=== PATIENT | male | born 1950 | race Caucasian/White ===

== ENCOUNTER 2016-12-17 11:33 | Outpatient (CLI) | payer MEDICARE | END 2016-12-17 11:34 | disposition home or self-care (01) | LOC: LABBT 11:33 | PROVIDERS: ATTEND Specialist | DX: Z01.818 Encounter for other preprocedural examination (principal); E66.01 Morbid (severe) obesity due to excess calories; Z68.42 Body mass index [BMI] 45.0-49.9, adult ==

== ENCOUNTER 2016-12-17 12:00 | Inpatient (IN) | payer MEDICARE ==
[2016-12-17 12:01] VITALS: BMI 45.1
--- NOTE | 2016-12-17 22:30 | HP ---
HISTORY OF PRESENT ILLNESS: Mr. Dailey is a 66-year-old male who I saw for appendicitis and he did well after laparoscopic appendectomy. On 04/27/2016, he presented for consideration of bariatric s leeve. He has attended our educational seminar, visited our dietitian, met with psychiatry and felt to be a good candidate. He understands the dietary changes associated with laparoscopic sleeve gas trectomy. He has had a Lexiscan and echocardiogram with Dr. Paolo العلي 11/01, all of which wer e normal and he is cleared for surgery without further evaluations. The patient has minimal cardiac risk. His echocardiogram was normal. Lexiscan normal. He had borderline EKG changes, bradycardia , otherwise unremarkable cardiac workup. His preoperative bariatric labs obtained are unremarkable. The patient when initially seen was 346 pounds, 45 BMI. Today 342 pounds, 45 BMI. He reports 10 pounds total weight loss since he has attended the seminar. He understands the risk of operation in cluding infection, bleeding, reoperation, staple line leakage, re-admission etc and questions answer ed, he consents. COMORBIDITIES: The patient is followed by Dr. Roca. He reports having a colonoscopy 4-[address] Lemon and 2 polyps were removed. Comorbidities include hypertension, elevated cholestero l, sleep apnea, well controlled on medications with normal cholesterol and triglycerides. 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 He is and has one grown child. He does have a history of atrial flutter, followed Dr. العلي, but as noted above, has had cardiac clearance wi thout contraindication to surgery. ALLERGIES: PENICILLIN. PAST MEDICAL HISTORY: Hypertension, elevated cholesterol, bipolar disease, obesity, sleep apnea, an xiety. PAST SURGICAL HISTORY: Right rotator cuff 2004, laparoscopic appendectomy 01/2016, colonoscopy in t he past. MEDICATIONS: CPAP, Abilify 10 mg a day, lisinopril 40 mg a day, metoprolol 80 mg a day, Sertraline 200 mg a day, hydroxyzine once a day, simvastatin 40 mg a day. REVIEW OF SYSTEMS: Ten point noncontributory. PHYSICAL EXAMINATION: VITAL SIGNS: 6 foot 1, 342 pounds, 45 BMI, 167 pounds ideal body weight, 147/77, 76, 95 degrees. HEENT: Unremarkable. LUNGS: Clear to auscultation. CARDIAC: Rhythm without murmur or gallop. ABDOMEN: Soft, obese, nontender. EXTREMITIES: Unremarkable. LYMPH: Lymphadenopathy not present, neck, axilla, groin. NEUROLOGIC: Neurologically intact. ASSESSMENT AND PLAN: Morbid obesity 342 pounds, 6 foot 1, 45 BMI, endorsed by psychiatry without an y prohibitive contraindications. Well controlled elevated cholesterol, hypertension, and sleep apne a on CPAP. Risk of operation as outlined above. Consents reviewed in the office with the patient. Questions answered. We will proceed with laparoscopic sleeve gastrectomy.
[2016-12-23] MEDS ORDERED: Scopolamine 1.5 mg/72 hour Patch ONE (06:08)
[2016-12-23] MEDS ORDERED: Ketorolac Tromethamine 30 MG/ML VIAL ONE (06:08)
[2016-12-23] MEDS ORDERED: Heparin 5,000 UNITS/ML VIAL ONE (06:08)
[2016-12-23] MEDS ORDERED: Sodium Chloride 0.9% 100 ML ONE (06:08)
[2016-12-23] MEDS ORDERED: Fentanyl 100 MCG/2 ML VIAL ONE (06:37)
[2016-12-23] MEDS ORDERED: Clindamycin/D5W 900 mg/50 ml Premix Bag ONE ×2 (06:50→08:22)
[2016-12-23] MEDS ORDERED: Levofloxacin 500 mg/D5W 100 ml Premix Bag ONE (06:50)
[2016-12-23] MEDS ORDERED: Bupivacaine HCl 0.5%/Epinephrine 1:200,000/PF 30 ml Vial ONE (07:07)
[2016-12-23] MEDS ORDERED: Glycopyrrolate 0.2 MG/ML 5 ML SYRINGE ONE (08:10)
[2016-12-23] MEDS ORDERED: Propofol 200 MG/20 ML VIAL ONE (08:10)
[2016-12-23] MEDS ORDERED: PHENYLEPHRINE-NS 100 MCG/ML 10 ML SYRINGE ONE (08:10)
[2016-12-23] MEDS ORDERED: Dexamethasone 20 MG/5 ML VIAL ONE (08:10)
[2016-12-23] MEDS ORDERED: ePHEDrine/0.9% NaCl/PF SYRINGE 50 mg/10 ml ONE (08:10)
[2016-12-23] MEDS ORDERED: Ondansetron HCl/PF 4 MG/2 ML Vial ONE (08:10)
[2016-12-23] MEDS ORDERED: Metoclopramide HCl 10 MG/2 ML VIAL ONE (08:10)
[2016-12-23] MEDS ORDERED: Lidocaine 1% PF 5 ML VIAL ONE (08:10)
[2016-12-23] MEDS ORDERED: Succinylcholine Chloride 20 MG/ML 10 ml SYRINGE FS ONE (08:10)
[2016-12-23] MEDS ORDERED: Morphine Sulfate 2 MG/ML SYRINGE SLOW IVP PRN (08:19)
[2016-12-23] MEDS ORDERED: Ondansetron HCl/PF 4 MG/2 ML Vial IVP PRN (08:19)
[2016-12-23] MEDS ORDERED: Dextrose 5% in Water 1,000 ML IV PRN (08:19)
[2016-12-23] MEDS ORDERED: Hydrocodone-Acetamin 15 ML UDCUP PO PRN ×2 (08:19→09:34)
[2016-12-23] MEDS ORDERED: Dextrose 50% Abboject 50 ML SYRINGE SLOW IVP PRN (08:19)
[2016-12-23] MEDS ORDERED: diphenhydrAMINE HCl 50 MG/ML 1 ML VIAL IVP PRN (08:19)
[2016-12-23] MEDS ORDERED: Acetaminophen 500 MG TAB PO SCH (08:30)
[2016-12-23] MEDS ORDERED: Promethazine HCl 25 MG/ML VIAL ONE (10:35)
[2016-12-23] MEDS ORDERED: D5 1/2 NS w/20 mEq KCL 1,000 ML ONE (10:39)
--- NOTE | 2016-12-23 11:01 | OP ---
DATE OF OPERATION: 12/23/2016 PREOPERATIVE DIAGNOSES: Morbid obesity, metabolic syndrome, sleep apnea, hypertension, elevated cho lesterol, 342 pounds, 45 body mass index. PROCEDURES: Laparoscopic sleeve gastrectomy, 36 Cymro bougie within 3.5 cm of pylorus completely s een in the upper endoscopy visualizing the pylorus, no obstruction. SURGEON: Dr. Asif Rdz. ANESTHESIA: General. Local 0.5% Marcaine with epinephrine, 60 mL. DESCRIPTION OF THE PROCEDURE: Patient taken to the operating room where under general anesthesia, a bdomen was clipped of hair, prepared with ChloraPrep, draped in routine fashion. Local anesthetic i nfiltrated into skin and subcutaneous tissue at each port site. Supraumbilical incision made midlin e and pneumoperitoneum to 15 mmHg obtained with the Veress needle, replacing it with a 5 port. Vide o laparoscope inserted. Left subxiphoid incision made and a Abilio liver retractor placed under lap aroscopic visualization reflecting the small left lobe of liver anteriorly. Bilateral upper abdomin al midclavicular incisions made and 15 mm port placed left and a 12 mm port placed right and bilater al subcostal, far lateral subcostal incisions made left and right and 5 ports placed. Gastrocolic l igament taken down adjacent to the greater curvature of the stomach using the LigaSure dissecting th is free up towards the ligament of Treitz. Posterior attachments taken down fully mobilizing the st omach. Dissection carried out distally with 3 cm of pylorus freeing the greater curvature. NG tube removed and 36 Cymro bougie placed orally by Anesthesia under laparoscopic visualization and posit ion into the distal stomach. Serial fires of the OR green load stapler initially created the first fire making appropriately a small pouch and antrum and serially firing yellow load staplers along t he bougie allowing the extra lumen near the incisura. Serial fires were up to the angle of His jiang ied out towards the upper fundus, taking care to avoid redundancy of the posterior stomach. Serial yellow fires and completion of blue load fires completing the sleeve gastrectomy removing through th is 15 mm port site and closing this fascial defect with a suture 0 Vicryl GraNee needle. Staple maya e in the stomach inspected and Hemoclips applied throughout gaining good hemostasis and area irrigat ed. Completion of upper endoscopy performed placing the scope per os under direct visualization ____ _ placed throughout the esophagus into the stomach, visualizing the pylorus without obstruction. Th ere was no bleeding. This was checked under water and there was no leak. Scope withdrawn and as th e stomach was decompressed with suction, esophagus was normal. GE junction was normal. There was n o evidence of hiatal hernia laparoscopically and endoscopically. My gloves and gowns were then izquierdo ged and attention turned to the abdominal cavity where this staple line along the sleeve gastrectomy was inspected. Good hemostasis obtained with clips. Irrigant and pneumoperitoneum evacuated. Lupe er retractor removed. All instruments removed and all skin incisions closed with interrupted subder mal 4-0 Monocryl and DermaGlue applied. At the end of the procedure, skin incisions approximated wi th subdermal 4-0 Monocryl and DermaGlue applied.
[2016-12-23] MEDS: Acetaminophen 1,000 MG in Premix Bag 1 BAG IVPB SCH ×3 (12:32→23:51)
[2016-12-23] MEDS: Ketorolac Tromethamine 30 MG/ML VIAL IVP SCH ×3 (12:32→23:50)
[2016-12-23] MEDS: D5 1/2 NS w/20 mEq KCL 1,000 ML IV SCH ×2 (12:54→18:01)
[2016-12-23] MEDS: Aripiprazole 10 MG TAB PO SCH (12:54)
[2016-12-23] MEDS: Pantoprazole 40 MG VIAL IVP SCH (12:54)
[2016-12-23] MEDS ORDERED: Enoxaparin Sodium 40 MG/0.4 ML SYRINGE SC SCH (21:00)
[2016-12-24] MEDS: D5 1/2 NS w/20 mEq KCL 1,000 ML IV SCH ×2 (02:44→13:15)
[2016-12-24 05:01] LABS: #Lymphocytes 1.4 thou/uL (1.20-3.40); #Monocytes 0.6 thou/uL (0.11-0.59); #Neutrophils 12.3 thou/uL (1.40-6.50); %Basophils 0.1 % (0.0-1.0); %Eosinophils 0.1 % (0.0-10.0); %Lymphocytes 9.7 % (21.0-51.0); %Monocytes 4.1 % (0.0-10.0); Hematocrit 42.7 % (42.0-52.0); Mean Platelet Volume 7.2 fL (7.4-10.4); Red Blood Cell (RBC) Count 4.61 mill/uL (4.70-6.10); White Blood Cell (WBC) Count 14.3 thou/uL (4.8-10.8)
[2016-12-24 05:19] LABS: Anion Gap 11 mmol/L (10-20); BUN (Urea Nitrogen) 23 mg/dL (8.4-25.7); Calc. Creatinine Clearance 146 mL/min (70-130); Calcium 8.5 mg/dL (7.8-10.44); Carbon Dioxide 24 mmol/L (23-31); Chloride 102 mmol/L (98-107); Estimated GFR-MDRD 66
[2016-12-24] MEDS: Acetaminophen 1,000 MG in Premix Bag 1 BAG IVPB SCH (06:06)
[2016-12-24] MEDS: Ketorolac Tromethamine 30 MG/ML VIAL IVP SCH ×2 (06:06→13:16)
[2016-12-24] MEDS ORDERED: Hydrochlorothiazide 25 MG TAB PO SCH (09:00)
[2016-12-24] MEDS ORDERED: traMADol HCl 50 MG TAB PO PRN ×2 (09:00)
[2016-12-24] MEDS ORDERED: Fish Oil 1,000 MG CAP PO SCH (09:00)
[2016-12-24] MEDS ORDERED: Polyethylene Glycol 3350 17 GM Packet PO SCH (09:00)
[2016-12-24] MEDS ORDERED: Atorvastatin Calcium 40 MG TAB PO SCH (09:00)
--- NOTE | 2016-12-24 09:23 | RAD ---
15 ML GASTROGRAFIN SWALLOW 12/24/16 HISTORY: Status post gastric sleeve procedure. Evaluate for enteric leak. FINDINGS: A 15 mL gastrografin swallow was performed. The contrast passed from the esophagus into the gastric sleeve without difficulty. The contrast passed out of the gastric sleeve into the duodenum without difficulty. Along the greater curvature of the stomach, there is radiopaque material which was of un certain significance. Therefore, radiographs were taken of the upper abdomen for better resolution. These radiopacities represent multiple surgical clips along the greater curvature of the stomach and along the gastric sleeve. There is no evidence of leakage of contrast from the gastric sleeve. IMPRESSION: Status post gastric sleeve procedure without evidence of complication. POS: OLI
[2016-12-24] MEDS ORDERED: Hydrocodone-Acetamin 15 ML UDCUP PO PRN (10:00)
[2016-12-24] MEDS ORDERED: Tamsulosin HCl 0.4 MG CAP PO SCH (10:30)
[2016-12-24] MEDS: Aripiprazole 10 MG TAB PO SCH (10:30)
[2016-12-24] MEDS: Pantoprazole 40 MG VIAL IVP SCH (10:31)
[2016-12-24] MEDS ORDERED: Acetaminophen 500 MG TAB PO SCH (12:00)
[2016-12-24] MEDS ORDERED: GASTROGRAFIN 30 ML BOT ONE (13:45)
[2016-12-24 15:47] VITALS: BP 134/76; TEMP 98.2
--- NOTE | 2016-12-24 19:32 | PRG ---
DATE OF SERVICE: 12/24/2016 SUBJECTIVE: Mr. Dailey is doing well after laparoscopic sleeve gastrectomy. His laboratories look good today. His heart rate is normal, vital signs normal. He is not having any pain. He is only taking Tylenol, not requiring any narcotics. OBJECTIVE: LUNGS: Clear to auscultation. CARDIAC: Regular rate and rhythm without murmur or gallop. ABDOMEN: Soft, nontender. Bowel sounds present. ASSESSMENT AND PLAN: Upper GI contrast swallow reveals normal post-sleeve gastrectomy findings with out leakage. The patient is tolerating liquids without problems. He has had in and out catheteriza tions x2 due to retention of 350 mL on retrieved without sensation to void. Subsequently, he was al lowed to go longer and was able to urinate 150 mL with postvoid residuals of 250-300 mL. The patien t has received Flomax this morning, discharged home on Flomax daily and given prescription for Ultra m should he needed. He has taken Tylenol and I will resume his home medications, but hold his hydro chlorothiazide for now. He will follow up with me per appointment in 2 weeks. He has appointment to see Urology tomorrow.
--- NOTE | 2016-12-25 04:06 | DIS ---
DATE OF ADMISSION: 12/23/2016 DATE OF DISCHARGE: 12/24/2016 DISCHARGE DIAGNOSES: Morbid obesity, urinary retention, hypertension. PROCEDURES THIS HOSPITALIZATION: Laparoscopic sleeve gastrectomy, 36 Canadian bougie within 3.5 cm of pylorus, completion endoscopy, contrast swallow postoperatively, no leak, normal sleeve gastrectomy . FINDINGS: Good emptying. HISTORY: A 66-year-old male with well documented history and physical. He underwent preoperative b ariatric evaluation and now presents for laparoscopic sleeve gastrectomy. He underwent that procedu re and postoperatively doing well. Postoperatively, he has tolerated his diet and discharged home. His has appointment with Urology, never having had a urology consultation in the past. He had urin valentina retention of 250-300 mL postvoid residual by bladder scan after emptying 150 mL. Follow up in m y office per appointment in a week and a half.
[2016-12-25] MEDS ORDERED: Tamsulosin HCl 0.4 MG CAP PO SCH (09:00)
== END 2016-12-24 16:25 | disposition home or self-care (01) | DRG 620 ==
LOC: SURG A 12-23 05:47
PROVIDERS: ADMIT Specialist; ATTEND Specialist
PROC: 0DB64Z3 Excision of Stomach, Percutaneous Endoscopic Approach, Vertical (ICD-10-PCS; principal; 2016-12-23)
DX: E88.81 Metabolic syndrome and other insulin resistance (principal); Z68.42 Body mass index [BMI] 45.0-49.9, adult; I10 Essential (primary) hypertension; G47.30 Sleep apnea, unspecified; E78.00 Pure hypercholesterolemia, unspecified; R33.9 Retention of urine, unspecified; Z88.0 Allergy status to penicillin
CPT/HCPCS: 36415; 74241; 80048; 85025; 88307; 88312; C9113; J0131; J0670; J0694; J1100; J1170; J1644; J1650; J1885; J1956; J2001; J2270; J2405; J2550; J2704; J2765; J3010; J3490; J7050

== ENCOUNTER 2017-02-03 08:59 | Outpatient (CLI) | payer MEDICARE ==
--- NOTE | 2017-02-03 10:01 | RAD ---
TWO VIEW CHEST: History: Pre-operative evaluation. Comparison: 03-16-13 FINDINGS: The lungs are clear. Heart and mediastinum appear normal. Osseous structures show degenerative spine changes. IMPRESSION: No acute process. POS: RICKH
[2017-02-03 15:31] LABS: Bilirubin Negative (Negative); Blood, Urine Negative (Negative); Glucose, Urine (Dipstick) Negative (Negative); Ketone, Urine Negative (Negative); Nitrite Negative (Negative); Protein, Urine (Dipstick) Negative (Neg-Trace)
[2017-02-03 15:33] LABS: Bacteria/HPF None Seen HPF (None Seen); Hyaline Casts/LPF 0-3 HYALINE CAST LPF (0-3 Hyaline); RBC/HPF 0-3 HPF (0-3); Squamous Epithelial None Seen HPF (0-3); WBC/HPF 0-3 HPF (0-3)
== END 2017-02-03 09:00 | disposition home or self-care (01) ==
LOC: LABBT 08:59
PROVIDERS: ATTEND Urology
DX: Z01.818 Encounter for other preprocedural examination (principal); N21.0 Calculus in bladder; N40.1 Benign prostatic hyperplasia with lower urinary tract symptoms; R33.9 Retention of urine, unspecified; R35.1 Nocturia
CPT/HCPCS: 71020; 81001

== ENCOUNTER 2017-02-09 05:59 | Inpatient (IN) | payer MEDICARE ==
[2017-02-09] MEDS ORDERED: Fentanyl 250 MCG/5 ML VIAL ONE (06:31)
[2017-02-09] MEDS ORDERED: Dexamethasone 4 mg/ml Vial ONE (06:39)
[2017-02-09] MEDS ORDERED: Levofloxacin 500 mg/D5W 100 ml Premix Bag ONE (06:39)
[2017-02-09] MEDS ORDERED: Midazolam HCl 2 mg/2 ml Vial ONE (07:16)
[2017-02-09] MEDS ORDERED: Furosemide 20 MG/2 ML VIAL ONE (07:17)
[2017-02-09] MEDS ORDERED: B & O ONE (07:17)
[2017-02-09] MEDS ORDERED: Fentanyl 100 MCG/2 ML VIAL ONE (09:38)
[2017-02-09] MEDS ORDERED: diphenhydrAMINE 50 MG/ML VIAL IVP PRN (10:11)
[2017-02-09] MEDS ORDERED: Docusate 100 MG CAP PO PRN (10:11)
[2017-02-09] MEDS ORDERED: Ondansetron HCl/PF 4 MG/2 ML Vial IVP PRN ×2 (10:11→10:41)
[2017-02-09] MEDS ORDERED: Acetaminophen 500 MG TAB PO PRN (10:11)
[2017-02-09] MEDS ORDERED: Metoclopramide HCl 10 MG/2 ML VIAL IVP PRN (10:19)
[2017-02-09] MEDS ORDERED: Promethazine HCl 25 MG/ML VIAL IM/IV PRN (10:41)
[2017-02-09] MEDS ORDERED: Non-Formulary Medication 1 EACH PO PRN (10:41)
[2017-02-09] MEDS ORDERED: Amiodarone HCl 150 MG, Admixture Fee 1 EACH in Dextrose 5% in Water 100 ML IVPB SCH ×3 (12:30)
[2017-02-09] MEDS ORDERED: Amiodarone In Dextrose 200 ML IVPB SCH (12:30)
[2017-02-09] MEDS ORDERED: Sodium Chloride 0.9% 10 ML ONE (12:37)
[2017-02-09] MEDS ORDERED: Heparin 5,000 UNITS/ML VIAL ONE (13:48)
[2017-02-09 14:51] VITALS: BMI 40.1
[2017-02-09] MEDS: Heparin 5,000 UNITS/ML VIAL SC SCH ×2 (15:23→23:05)
[2017-02-09] MEDS ORDERED: Lidocaine 1% PF 5 ML VIAL ONE (16:41)
[2017-02-09] MEDS ORDERED: Ondansetron HCl/PF 4 MG/2 ML Vial ONE (16:41)
[2017-02-09] MEDS ORDERED: Propofol 200 MG/20 ML VIAL ONE (16:41)
[2017-02-09] MEDS ORDERED: Metoprolol Tartrate 5 MG/5 ML VIAL ONE (16:41)
[2017-02-09] MEDS ORDERED: ePHEDrine/0.9% NaCl/PF SYRINGE 50 mg/10 ml ONE (16:41)
[2017-02-09] MEDS ORDERED: Glycopyrrolate 0.2 MG/ML 5 ML SYRINGE ONE (16:41)
--- NOTE | 2017-02-09 16:49 | CON ---
DATE OF CONSULTATION: 02/09/2017 HISTORY OF PRESENT ILLNESS: The patient is a 66-year-old gentleman with a history of paroxysmal atrial fibrillation, who was noted to be in irregular heart rhythm after undergoing surgery. The patient was seen initially in 2011. He underwent electrical cardioversion and the patient took Multaq for a period of time. The patient subsequently underwent a preoperative cardiac evaluation prior to undergoing urologic surgery. He underwent a stress test which revealed normal left ventricular ejection fraction and no evidence of ischemia. Following surgery today, the patient noted to be in an irregular heart rhythm. The patient denies having any palpitations. The patient denies having any chest discomfort or dyspnea. PAST MEDICAL HISTORY: 1. Atrial fibrillation. 2. Hypertension. 3. Depression. 4. Obesity. PAST SURGICAL HISTORY: Gastric sleeve surgery, vasectomy, and appendectomy. SOCIAL HISTORY: Former smoker. ALLERGIES: PENICILLIN. MEDICATIONS ON ADMISSION: Finasteride 5 daily, Zoloft 200 daily, Prilosec 10 daily, Abilify 10 daily, metoprolol 25 daily, Zocor 80 at bedtime, Flomax 0.4 daily, Atarax 10 b.i.d. REVIEW OF SYSTEMS: No history of easy bruising or bleeding. Ten-point systems unremarkable. PHYSICAL EXAMINATION: GENERAL: This is an obese gentleman, in no acute distress. VITAL SIGNS: Blood pressure 129/80, heart rate was 80 and irregular. NECK: Full. LUNGS: Clear. HEART: Irregular rate and rhythm, normal S1, S2. ABDOMEN: Distended. EXTREMITIES: Showed trace edema. SKIN: Warm and dry. NEUROLOGIC: Nonfocal. VASCULAR: Radial pulses 2+. LABORATORY RESULTS: Pending. His EKG revealed atrial fibrillation with a controlled ventricular rate otherwise unremarkable. IMPRESSION: 1. Paroxysmal atrial fibrillation. 2. Hypertension. 3. Obesity. 4. Sleep apnea. 5. Status post urologic surgery. This gentleman went into atrial fibrillation postoperatively. He has a CHADS- VASc score of 2. He cannot be anticoagulated secondary to his recent urologic surgery. We will try to cardiovert the patient with IV amiodarone. The patient will need to be maintained on antiarrhythmic therapy until he can be started on anticoagulation therapy. We will follow this patient with you through his hospitalization. [facility]
--- NOTE | 2017-02-09 17:04 | OP ---
DATE OF PROCEDURE: 02/09/2017 PREOPERATIVE DIAGNOSES: Benign prostatic hypertrophy with partial retention and small tiny bladder s tones. POSTOPERATIVE DIAGNOSES: Benign prostatic hypertrophy with partial retention and small tiny bladder stones. PROCEDURE PERFORMED: GreenLight laser vaporization of the prostate. SURGEON: Dr. Chacon. ANESTHESIA: General with ET tube. COMPLICATIONS: None, but he did have a flip into atrial fibrillation from normal sinus that remained hemodynamically stable without any significant tachycardia. There were no complications. BLOOD LOSS: Minimal. SPECIMEN: Prostate. A total of 123,106 joules used. DRAINS: Drain remaining was 20-Panamanian 2-way. INDICATIONS FOR PROCEDURE: The patient is a 66-year-old male who was found in the office for signifi cant residuals and partial retention, but has not required an indwelling catheter for an extended rudy e and so a set up for GreenLight laser vaporization of the prostate. Cystoscopy in the office did re veal small tiny stones that will be easily rinsed out during the procedure and confirmed the need for the procedure even more, so we set up for this. TECHNIQUE: The patient was brought into the room by Anesthesia, laid on the table in the supine posi tion. After given general anesthetic, his legs placed in lithotomy position and his perineum was pre pped and draped in sterile fashion. Using a 22.5 Panamanian cystoscope and 30 degree lens, it was lloyd sed and the bladder inspected. Ureteral orifices were identified and preserved throughout the case. A power level of 80 was used in the bladder neck and the veru, power of 180 was used in the mid glan d. Total of 123,106 joules were used. When the scope was removed, a decent stream was noted. The s cope was put back in and further contouring of the bladder neck was performed at a power level of 80. Hemostasis was ensured after decompressing the bladder and then refilling and ensuring all debris a nd stone fragments were removed. The scope was removed the final time. A 20 Panamanian catheter was lyle saeid to gravity. The patient was then awakened and transferred to the PACU in stable condition. 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
[2017-02-09] MEDS: Famotidine/PF 20 mg/2ml Vial SLOW IVP SCH (20:21)
[2017-02-10] MEDS: Heparin 5,000 UNITS/ML VIAL SC SCH ×3 (04:56→20:50)
--- NOTE | 2017-02-10 07:54 | EKG ---
Test Reason : POST OP Blood Pressure : / mmHG Vent. Rate : 090 BPM Atrial Rate : 267 BPM P-R Int : 000 ms QRS Dur : 092 ms QT Int : 380 ms P-R-T Axes : 000 004 011 degrees QTc Int : 464 ms Atrial fibrillation with premature ventricular or aberrantly conducted complexes Cannot rule out Inferior infarct , age undetermined Abnormal ECG When compared with ECG of 31-JAN-2016 13:58, Atrial fibrillation has replaced Sinus rhythm QT has lengthened Confirmed by SHOAIB BALLESTEROS ([id number]) on 02/10/2017 7:54:02 AM Referred By: ARIA Confirmed By:SHOAIB BALLESTEROS
[2017-02-10] MEDS ORDERED: hydrOXYzine 10 MG TAB PO SCH (09:00)
[2017-02-10] MEDS: Aripiprazole 10 MG TAB PO SCH (09:28)
[2017-02-10] MEDS: Famotidine/PF 20 mg/2ml Vial SLOW IVP SCH ×2 (09:28→20:54)
[2017-02-10] MEDS: Finasteride 5 MG TAB PO SCH (09:28)
[2017-02-10] MEDS: Tamsulosin HCl 0.4 MG CAP PO SCH (09:28)
[2017-02-10] MEDS: Amiodarone 200 MG TAB PO SCH ×3 (09:29→20:49)
[2017-02-11] MEDS: Heparin 5,000 UNITS/ML VIAL SC SCH ×2 (05:51→13:51)
[2017-02-11 07:43] VITALS: TEMP 98
[2017-02-11] MEDS: Finasteride 5 MG TAB PO SCH (09:57)
[2017-02-11] MEDS: Tamsulosin HCl 0.4 MG CAP PO SCH (09:57)
[2017-02-11] MEDS: Amiodarone 200 MG TAB PO SCH (09:57)
[2017-02-11] MEDS: Aripiprazole 10 MG TAB PO SCH (09:57)
[2017-02-11] MEDS ORDERED: Famotidine 20 MG TAB PO SCH ×2 (10:00→21:00)
[2017-02-11] MEDS: Famotidine/PF 20 mg/2ml Vial SLOW IVP SCH (10:00)
[2017-02-11 13:52] VITALS: BP 105/72
--- NOTE | 2017-02-13 07:52 | DIS ---
DATE OF ADMISSION: 02/09/2017 DATE OF DISCHARGE: 02/11/2017 ADMITTING DIAGNOSIS: The patient was admitted for atrial fibrillation after GreenLight laser vaporization. DISCHARGE DIAGNOSIS: Atrial fibrillation during and after GreenLight laser vaporization. HOSPITAL COURSE: The patient is a 66-year-old male who was followed in the office for BPH and had significant partial urinary retention but had not yet required a catheter. He also had small flecks of stone in his bladder when inspected preoperatively, which we rinsed out during the procedure for which he had been set up to include GreenLight laser vaporization of the prostate. The patient underwent this on 02/09/2017 and did well intraoperatively other than an incidental notice of switching from normal sinus rhythm to atrial fibrillation. He had remained hemodynamically stable without any tachycardia. The case was completed as normal and then Cardiology was consulted in the PACU. They wanted to observe him initially overnight and then for another night, so he was admitted for observation, then changed to inpatient, and ultimately remained hemodynamically stable throughout this time and did not convert spontaneously. We discussed the pros and cons of cardiac conversion, but they wanted to use anticoagulation if they were to do this, so I preferred waiting until he is at least 2 weeks out from the procedure before doing something like that. He was discharged home and expected to follow up with Cardiology per their request and he can follow up with me in about a month. Of note, on postop day #1, the patient's catheter was removed and he was voiding without difficulty with some blood in the urine, which is expected and minimal burning. LEO
== END 2017-02-11 14:31 | disposition home or self-care (01) | DRG 713 ==
LOC: SDC 05:59 → UNDOADMOB 10:14 → 2NO 10:14 → OBSVTOIN 02-10 15:30
PROVIDERS: ADMIT Urology; ATTEND Urology
PROC: 0V508ZZ Destruction of Prostate, Via Natural or Artificial Opening Endoscopic (ICD-10-PCS; principal; 2017-02-09)
PROC: 0TFB8ZZ Fragmentation in Bladder, Via Natural or Artificial Opening Endoscopic (ICD-10-PCS; 2017-02-09)
DX: N40.1 Benign prostatic hyperplasia with lower urinary tract symptoms (principal); I97.89 Other postprocedural complications and disorders of the circulatory system, not elsewhere classified; I48.0 Paroxysmal atrial fibrillation; I10 Essential (primary) hypertension; N21.0 Calculus in bladder; R33.8 Other retention of urine; G47.30 Sleep apnea, unspecified; E66.9 Obesity, unspecified; R00.0 Tachycardia, unspecified; R39.11 Hesitancy of micturition; R35.1 Nocturia; Z68.39 Body mass index [BMI] 39.0-39.9, adult; Z98.84 Bariatric surgery status; Z88.0 Allergy status to penicillin; Z82.49 Family history of ischemic heart disease and other diseases of the circulatory system; Z82.3 Family history of stroke; Z81.8 Family history of other mental and behavioral disorders; Z80.1 Family history of malignant neoplasm of trachea, bronchus and lung; Z80.8 Family history of malignant neoplasm of other organs or systems; Z83.3 Family history of diabetes mellitus; Y83.8 Other surgical procedures as the cause of abnormal reaction of the patient, or of later complication, without mention of misadventure at the time of the procedure; Y92.234 Operating room of hospital as the place of occurrence of the external cause
CPT/HCPCS: 88305; 93005; 93010; 96374; A4216; J0282; J1100; J1644; J1940; J1956; J2001; J2250; J2405; J2704; J3010; J7070; S0028

== ENCOUNTER 2018-08-03 14:00 | Outpatient (CLI) | payer MEDICARE ==
--- NOTE | 2018-08-03 14:22 | RAD ---
EXAM: Chest PA and lateral: HISTORY: Syncope. Collapse. COMPARISON: 02/03/2017 FINDINGS: Heart: Normal cardiac silhouette Aorta: Unremarkable Pulmonary vessels: Normal Costophrenic angles: Costophrenic angles are clear. Lungs: No consolidation or masses. Pneumothorax: No pneumothorax Osseous structures: No osseous abnormalities IMPRESSION: No acute cardiopulmonary process.
== END 2018-08-03 14:01 | disposition home or self-care (01) ==
LOC: RAD 14:00
PROVIDERS: ATTEND Internal Medicine Cardiovascular Disease
DX: R55 Syncope and collapse (principal)
CPT/HCPCS: 71046

== ENCOUNTER 2020-07-05 13:01 | Emergency (ER) | payer MEDICARE ==
[2020-07-05] MEDS ORDERED: Fentanyl 100 MCG/2 ML VIAL ONE (14:17)
[2020-07-05] MEDS ORDERED: PROPOFOL 20 ML ONE (14:17)
== END 2020-07-05 16:20 | disposition home or self-care (01) ==
LOC: ERS 13:01
DX: S43.015A Anterior dislocation of left humerus, initial encounter (principal); W01.0XXA Fall on same level from slipping, tripping and stumbling without subsequent striking against object, initial encounter; Z79.899 Other long term (current) drug therapy; Z87.891 Personal history of nicotine dependence; I48.91 Unspecified atrial fibrillation
CPT/HCPCS: 23650; 96374; 99152; 99153; J2704; J3010

== ENCOUNTER 2020-12-12 16:59 | Outpatient (CLI) | payer MEDICARE ==
[2020-12-12 18:31] LABS: Hemoglobin 14.9 g/dL (13.5-17.5); Mean Corpuscular HGB CONC 33.1 g/dL (32.0-36.0); Mean Corpuscular Volume 93.6 fl (81.2-95.1); Mean Platelet Volume 10.8 fl (7.4-10.4); Platelet Count 170 10x3/uL (150-450); RBC Distribution Width 13.4 % (11.5-14.5); Red Blood Cell (RBC) Count 4.81 10x6/uL (4.32-5.72); White Blood Cell (WBC) Count 7.4 10x3/uL (3.5-10.5)
[2020-12-12 18:34] LABS: Anion Gap 16 mmol/L (10-20); BUN (Urea Nitrogen) 22 mg/dL (8.4-25.7); Calc. Creatinine Clearance 0 mL/min (70-130); Calcium 10.1 mg/dL (7.8-10.44); Carbon Dioxide 26 mmol/L (23-31); Chloride 105 mmol/L (98-107); Glucose 74 mg/dL (80-115); Potassium 4.9 mmol/L (3.5-5.1); Sodium 142 mmol/L (136-145)
[2020-12-13 08:33] LABS: SARS-CoV-2 PCR by NAA Not Detected (NotDetected)
== END 2020-12-12 17:00 | disposition home or self-care (01) ==
LOC: LABBT 16:59
PROVIDERS: ATTEND Internal Medicine Cardiovascular Disease
DX: Z01.812 Encounter for preprocedural laboratory examination (principal); Z20.822 Contact with and (suspected) exposure to COVID-19
CPT/HCPCS: 80048; 85027; U0003; U0005

== ENCOUNTER → 2020-12-16 | Day surgery (SDC) | payer MEDICARE ==
[2020-12-13 11:22] VITALS: BMI 30.2
[~2020-12-16] MED LIST: Fentanyl 100 MCG/2 ML VIAL ONE; PROPOFOL 20 ML ONE
== END ==
LOC: SDC 05:59
PROVIDERS: ATTEND Internal Medicine Cardiovascular Disease
PROC: B24BZZ4 Ultrasonography of Heart with Aorta, Transesophageal (ICD-10-PCS; principal; 2020-12-16)
PROC: 5A2204Z Restoration of Cardiac Rhythm, Single (ICD-10-PCS; 2020-12-16)
DX: I48.91 Unspecified atrial fibrillation (principal); I08.1 Rheumatic disorders of both mitral and tricuspid valves; I70.0 Atherosclerosis of aorta; G47.33 Obstructive sleep apnea (adult) (pediatric); I10 Essential (primary) hypertension; E78.5 Hyperlipidemia, unspecified; I49.8 Other specified cardiac arrhythmias; I49.5 Sick sinus syndrome; E78.00 Pure hypercholesterolemia, unspecified; E87.1 Hypo-osmolality and hyponatremia; E66.01 Morbid (severe) obesity due to excess calories; Z68.30 Body mass index [BMI] 30.0-30.9, adult; Z87.891 Personal history of nicotine dependence; Z79.01 Long term (current) use of anticoagulants; Z79.899 Other long term (current) drug therapy; Z88.0 Allergy status to penicillin; Z95.0 Presence of cardiac pacemaker; Z98.84 Bariatric surgery status
CPT/HCPCS: 92960; 93005; 93010; 93312; J2704; J3010

== ENCOUNTER → 2022-10-27 | Day surgery (SDC) | payer MEDICARE ==
[2022-10-26 11:36] VITALS: BMI 32.0
[~2022-10-27] MED LIST changes: -Fentanyl 100 MCG/2 ML VIAL ONE; +Lidocaine 1% PF 5 ML VIAL ONE; -PROPOFOL 20 ML ONE; +PROPOFOL 200 MG/20 ML VIAL ONE
[2022-10-27 06:44] LABS: #Basophils 0.1 thou/uL (0.0-0.2); #Eosinphils 0.5 thou/uL (0.0-0.7); #Monocytes 0.6 thou/uL (0.11-0.59); #Neutrophils 2.4 thou/uL (1.40-6.50); %Basophils 1.8 % (0.0-1.0); %Eosinophils 7.2 % (0.0-10.0); %Lymphocytes 46.4 % (21.0-51.0); %Monocytes 8.7 % (0.0-10.0); %Neutrophils 35.8 % (42.0-75.0); Hematocrit 44.5 % (42.0-52.0); Hemoglobin 14.3 g/dL (14.0-18.0); Mean Corpuscular HGB CONC 32.1 g/dL (32.0-36.0); Mean Corpuscular Hemoglobin 30.6 pg (27.0-31.0); Mean Corpuscular Volume 95.1 fl (78.0-98.0); Mean Platelet Volume 10.1 fL (7.4-10.4); Platelet Count 148 10x3/uL (130-400); RBC Distribution Width 14.5 % (11.5-14.5); Red Blood Cell (RBC) Count 4.68 mill/uL (4.70-6.10); White Blood Cell (WBC) Count 6.7 10x3/uL (4.8-10.8)
[2022-10-27 07:06] LABS: Anion Gap 13 mmol/L (10-20); BUN (Urea Nitrogen) 14 mg/dL (8.4-25.7); Calc. Creatinine Clearance 129 mL/min (70-130); Calcium 9.4 mg/dL (7.8-10.44); Carbon Dioxide 23 mmol/L (23-31); Chloride 106 mmol/L (98-107); Estimated GFR 94; Glucose 84 mg/dL (80-115); Potassium 3.8 mmol/L (3.5-5.1); Sodium 138 mmol/L (136-145)
== END ==
LOC: SDC 06:01
PROVIDERS: ATTEND Internal Medicine Cardiovascular Disease
PROC: 5A2204Z Restoration of Cardiac Rhythm, Single (ICD-10-PCS; principal; 2022-10-27)
DX: I48.91 Unspecified atrial fibrillation (principal); I10 Essential (primary) hypertension; I49.5 Sick sinus syndrome; I49.8 Other specified cardiac arrhythmias; E87.1 Hypo-osmolality and hyponatremia; I34.0 Nonrheumatic mitral (valve) insufficiency; E78.00 Pure hypercholesterolemia, unspecified; G47.33 Obstructive sleep apnea (adult) (pediatric); E66.01 Morbid (severe) obesity due to excess calories; Z68.32 Body mass index [BMI] 32.0-32.9, adult; Z87.891 Personal history of nicotine dependence; Z79.01 Long term (current) use of anticoagulants; Z79.899 Other long term (current) drug therapy; Z95.0 Presence of cardiac pacemaker; Z90.49 Acquired absence of other specified parts of digestive tract; Z98.84 Bariatric surgery status; Z88.0 Allergy status to penicillin
CPT/HCPCS: 36416; 80048; 85025; 92960; 93005; 93010; J2704

== ENCOUNTER 2022-12-31 16:31 | Emergency (ER) | payer MEDICARE ==
[2022-12-31] MEDS ORDERED: Boostrix 0.5 ML (Tdap) VIAL (>/=7 yrs of age) ONE (18:42)
== END 2022-12-31 19:02 | disposition home or self-care (01) ==
LOC: ERS 16:31
DX: S81.812A Laceration without foreign body, left lower leg, initial encounter (principal); Z87.891 Personal history of nicotine dependence; W25.XXXA Contact with sharp glass, initial encounter
CPT/HCPCS: 12002; 90471; 90715

== ENCOUNTER 2023-02-17 07:15 | Day surgery (SDC) | payer MEDICARE ==
[2023-02-16 12:10] VITALS: BMI 33.2
[2023-02-16 13:28] LABS: Hematocrit 45.2 % (38.8-50.0); Mean Corpuscular HGB CONC 33.2 g/dL (32.0-36.0); Mean Corpuscular Hemoglobin 30.4 pg (27.0-33.0); Mean Corpuscular Volume 91.5 fl (81.2-95.1); Mean Platelet Volume 10.7 fl (7.4-10.4); Platelet Count 173 10x3/uL (150-450); RBC Distribution Width 13.5 % (11.5-14.5); Red Blood Cell (RBC) Count 4.94 10x6/uL (4.32-5.72)
[2023-02-16 13:47] LABS: Anion Gap 16 mmol/L (10-20); BUN (Urea Nitrogen) 15 mg/dL (8.4-25.7); Calc. Creatinine Clearance 138 mL/min (70-130); Calcium 9.1 mg/dL (7.8-10.44); Carbon Dioxide 25 mmol/L (23-31); Chloride 105 mmol/L (98-107); Estimated GFR 96; Glucose 79 mg/dL (83-110); Potassium 4.6 mmol/L (3.5-5.1); Sodium 141 mmol/L (136-145)
[2023-02-16 13:51] LABS: INR-International Normal Ratio 1.1; Prothrombin Time 11.4 sec (9.5-12.1)
[2023-02-17] MEDS ORDERED: fentaNYL PF 100 MCG/2 ML SYRINGE ONE (07:19)
[2023-02-17] MEDS ORDERED: Heparin 10,000 UNITS/ 10 ML VIAL ONE (07:20)
[2023-02-17] MEDS ORDERED: Heparin 25,000 units/D5W 500 ML ONE (07:20)
[2023-02-17] MEDS ORDERED: Protamine Sulfate 50 MG/5 ML VIAL ONE ×2 (07:21→11:17)
[2023-02-17] MEDS ORDERED: Dexmedetomidine 200 MCG/2 ML VIAL ONE (08:01)
[2023-02-17] MEDS ORDERED: PROPOFOL 200 MG/20 ML VIAL ONE (08:08)
[2023-02-17] MEDS ORDERED: Ondansetron PF 4 MG/2 ML Vial ONE (08:08)
[2023-02-17] MEDS ORDERED: Dexamethasone 20 MG/5 ML VIAL ONE (08:08)
[2023-02-17] MEDS ORDERED: PHENYLEPHRINE-NS 100 MCG/ML 10 ML SYRINGE ONE (08:08)
[2023-02-17] MEDS ORDERED: Rocuronium Bromide 10 MG/ML (10ML VIAL) ONE (08:08)
[2023-02-17] MEDS ORDERED: Esmolol 100 MG/10 ML VIAL ONE (08:08)
[2023-02-17] MEDS ORDERED: Lidocaine 1% PF 5 ML VIAL ONE (08:08)
[2023-02-17] MEDS ORDERED: Phenylephrine 40 MG/NS 250 ML 250 ML ONE (09:06)
[2023-02-17] MEDS ORDERED: Isoproterenol 0.2 MG/1 ML AMP ONE (09:27)
[2023-02-17] MEDS ORDERED: fentaNYL 50 mcg/mL 1 mL Vial ONE (11:18)
[2023-02-17] MEDS ORDERED: SUGAMMADEX SODIUM 200 MG/2 ML VIAL ONE (11:18)
== END 2023-02-17 15:29 | disposition home or self-care (01) ==
LOC: SDC 07:15
PROVIDERS: ATTEND Internal Medicine Cardiovascular Disease
PROC: 4B02XSZ Measurement of Cardiac Pacemaker, External Approach (ICD-10-PCS; principal; 2023-02-17)
PROC: 02583ZZ Destruction of Conduction Mechanism, Percutaneous Approach (ICD-10-PCS; 2023-02-17)
PROC: 4A0234Z Measurement of Cardiac Electrical Activity, Percutaneous Approach (ICD-10-PCS; 2023-02-17)
DX: I48.19 Other persistent atrial fibrillation (principal); Z95.0 Presence of cardiac pacemaker; I35.1 Nonrheumatic aortic (valve) insufficiency; I10 Essential (primary) hypertension; G47.30 Sleep apnea, unspecified; F32.A Depression, unspecified; Z87.891 Personal history of nicotine dependence; E66.9 Obesity, unspecified; Z98.84 Bariatric surgery status; Z79.01 Long term (current) use of anticoagulants; Z88.0 Allergy status to penicillin; Z79.899 Other long term (current) drug therapy; Z90.49 Acquired absence of other specified parts of digestive tract
CPT/HCPCS: 80048; 85027; 85347 ×2; 85610; 85730; 93005; 93623; 93656; 93657; C1732 ×3; C1759; C1760; C1894; C1769; J1100; J1644; J2405; J2704; J2720; J3010

== ENCOUNTER 2025-01-23 13:43 | Inpatient (IN) | payer MEDICARE ==
[2025-01-23 14:49] VITALS: BMI 35.9
[2025-01-23 15:22] LABS: #Basophils 0.05 10x3/uL (0.0-0.2); #Eosinophils 0.16 10x3/uL (0.0-0.7); #Monocytes 0.60 10x3/uL (0.11-0.59); #Neutrophils 2.72 10x3/uL (1.40-6.50); %Basophils 0.9 % (0.0-1.0); %Eosinophils 2.9 % (0.0-10.0); %Lymphocytes 36.1 % (21.0-51.0); %Monocytes 10.8 % (0.0-10.0); %Neutrophils 49.1 % (42.0-75.0); Hematocrit 41.2 % (42.0-52.0); Hemoglobin 13.0 g/dL (14.0-18.0); Mean Corpuscular Hemoglobin 29.1 pg (27.0-31.0); Mean Corpuscular Volume 92.4 fL (78.0-98.0); Platelet Count 133 10x3/uL (130-400); Red Blood Cell (RBC) Count 4.46 mill/uL (4.70-6.10); White Blood Cell (WBC) Count 5.54 10x3/uL (4.8-10.8)
[2025-01-23 15:34] LABS: Anion Gap 11 mmol/L (10-20); BUN (Urea Nitrogen) 21 mg/dL (8.4-25.7); Calc. Creatinine Clearance 149 mL/min (70-130); Calcium 8.6 mg/dL (7.8-10.44); Carbon Dioxide 24 mmol/L (23-31); Chloride 109 mmol/L (98-107); Glucose 90 mg/dL (83-110); Potassium 3.9 mmol/L (3.5-5.1); Sodium 140 mmol/L (136-145)
[2025-01-23 16:39] LABS: INR-International Normal Ratio 1.1; Prothrombin Time 14.5 sec (12.0-14.7)
[2025-01-23] MEDS ORDERED: Senokot 8.6 MG TAB PO PRN (17:14)
[2025-01-23] MEDS: Rosuvastatin 5 MG TAB PO SCH (21:03)
[2025-01-23] MEDS: Apixaban 5 MG TAB PO SCH (21:03)
[2025-01-24 04:39] LABS: Anion Gap 13 mmol/L (10-20); BUN (Urea Nitrogen) 14 mg/dL (8.4-25.7); Calc. Creatinine Clearance 143 mL/min (70-130); Calcium 8.8 mg/dL (7.8-10.44); Carbon Dioxide 23 mmol/L (23-31); Chloride 109 mmol/L (98-107); Glucose 81 mg/dL (83-110); Magnesium 1.9 mg/dL (1.6-2.6); Potassium 4.2 mmol/L (3.5-5.1); Sodium 141 mmol/L (136-145)
[2025-01-24 04:42] LABS: #Basophils 0.06 10x3/uL (0.0-0.2); #Eosinophils 0.18 10x3/uL (0.0-0.7); #Monocytes 0.53 10x3/uL (0.11-0.59); #Neutrophils 2.54 10x3/uL (1.40-6.50); %Basophils 1.1 % (0.0-1.0); %Eosinophils 3.3 % (0.0-10.0); %Lymphocytes 39.4 % (21.0-51.0); %Monocytes 9.7 % (0.0-10.0); %Neutrophils 46.3 % (42.0-75.0); Hematocrit 40.8 % (42.0-52.0); Hemoglobin 12.9 g/dL (14.0-18.0); Mean Corpuscular Hemoglobin 29.4 pg (27.0-31.0); Mean Corpuscular Volume 92.9 fL (78.0-98.0); Platelet Count 117 10x3/uL (130-400); Red Blood Cell (RBC) Count 4.39 mill/uL (4.70-6.10); White Blood Cell (WBC) Count 5.48 10x3/uL (4.8-10.8)
[2025-01-24] MEDS: Magnesium 2 GM/50 ML(in water) 2 GM in Premix 1 BAG IVPB SCH (08:58)
[2025-01-24] MEDS: Acetaminophen 325 MG TAB PO PRN (13:25)
[2025-01-24] MEDS ORDERED: Rosuvastatin 5 MG TAB PO SCH (21:00)
[2025-01-25 04:34] LABS: Anion Gap 11 mmol/L (10-20); BUN (Urea Nitrogen) 14 mg/dL (8.4-25.7); Calc. Creatinine Clearance 121 mL/min (70-130); Calcium 9.1 mg/dL (7.8-10.44); Carbon Dioxide 28 mmol/L (23-31); Chloride 108 mmol/L (98-107); Glucose 84 mg/dL (83-110); Magnesium 2.0 mg/dL (1.6-2.6); Potassium 4.5 mmol/L (3.5-5.1); Sodium 142 mmol/L (136-145)
[2025-01-25 08:40] VITALS: BP 126/68; TEMP 97.8
[2025-01-25] MEDS: Magnesium 2 GM/50 ML(in water) 2 GM in Premix 1 BAG IVPB SCH (08:53)
[2025-01-25] MEDS: Pantoprazole 40 MG DR.TAB PO SCH (08:54)
== END 2025-01-25 11:20 | disposition home or self-care (01) | DRG 309 ==
LOC: SURG A 13:47 → 2NO 14:20
PROVIDERS: ADMIT Internal Medicine; ATTEND Internal Medicine
DX: I49.3 Ventricular premature depolarization (principal); I50.32 Chronic diastolic (congestive) heart failure; E66.9 Obesity, unspecified; G47.33 Obstructive sleep apnea (adult) (pediatric); I48.0 Paroxysmal atrial fibrillation; E87.6 Hypokalemia; E83.42 Hypomagnesemia; D64.9 Anemia, unspecified; F17.200 Nicotine dependence, unspecified, uncomplicated; I49.5 Sick sinus syndrome; K59.00 Constipation, unspecified; I11.0 Hypertensive heart disease with heart failure; Z88.0 Allergy status to penicillin; Z95.0 Presence of cardiac pacemaker; Z68.35 Body mass index [BMI] 35.0-35.9, adult; Z79.899 Other long term (current) drug therapy
CPT/HCPCS: 36415; 80048; 83735; 83880; 84443; 85025; 85610; 93005; 93010; J3475